=== PATIENT | female | born 1980 | race Caucasian/White ===

== ENCOUNTER → 2017-03-31 | Day surgery (SDC) | payer BC ==
[~2017-03-31] MED LIST: DICY10CA53 PO; DOCU-109 PO; HYDROmorphone 2 MG/ML VIAL IV PRN; IBUP-1027 PO; IBUP-1060 PO; IV RINGERS,LACTATED 1000ML 1,000 ML IV SCH; LIDOCAINE 1% PF 2 ML VIAL. ID PRN; MIDAZOLAM HCL/PF 2 MG/2 ML VIAL. IV PRN; MORPHINE SULFATE 2 MG/ML DISP.SYRIN. IV PRN; ONDANSETRON PF 4 MG/2 ML VIAL. IV PRN; OXYC-323 PO; PROCHLORPERAZINE 10 MG/2 ML VIAL. IV PRN; PROPOFOL 40 ML IV ONE; RANI150T6 PO; TAMS0.4C97 PO; fentaNYL PF VIAL 100 MCG/2 ML VIAL IV PRN
[2017-03-31 10:27] VITALS: BP 104/62
--- NOTE | 2017-03-31 13:12 | CONS ---
DATE OF CONSULTATION: 03/31/2017 REFERRING PHYSICIAN: Jia Kunz MD of [place], [place] HISTORY OF PRESENT ILLNESS: A 36-year-old female whose past medical history is significant for Vidales syndrome, nephrolithiasis, status post hysterectomy as well as anxiety. She was admitted and seen for surveillance colonoscopy. Last exam was a year ago which was unrevealing. Previous upper endoscopy did reveal esophagitis and a papilloma. With the Vidales syndrome, surveillance colonoscopy was recommended on a yearly basis. Her father has had colon cancer with resection in the past year as well. She denies any melena or hematochezia. She denies any change in weight or appetite. No bleeding or additional complaints at this time. PAST MEDICAL HISTORY: Vidales syndrome, nephrolithiasis, anxiety. PAST SURGICAL HISTORY: Status post hysterectomy, tubal ligation and appendectomy. MEDICATIONS: Include Colace, ibuprofen, Percocet and Zantac. SOCIAL HISTORY: She is a former smoker. Social drinker. FAMILY HISTORY: Significant for Vidales syndrome. Also ____ colon cancer with her father and Crohn's disease with her grandmother. REVIEW OF SYSTEMS: Per records. PHYSICAL EXAMINATION: GENERAL: Reveals a well-nourished, well-developed female. VITAL SIGNS: Temperature is 98.1, pulse 80, respirations 20. HEENT: Normocephalic, atraumatic head. Pupils and extraocular movements not tested. Sclerae anicteric. NECK: Supple. LUNGS: Clear. CARDIOVASCULAR: Reveals S1, S2 without S3, S4 or appreciable murmur. ABDOMEN: Reveals a soft abdomen, normoactive bowel sounds ____ appreciable hepatosplenomegaly and multiple surgical incisions. EXTREMITIES: Reveals no cyanosis, clubbing or edema. IMPRESSION: Vidales syndrome. PLAN: Screening colonoscopy is recommended at this time on a yearly basis. Risks and benefits have been discussed with the patient who is willing to proceed at this time. BRIANNE HERNANDEZ MD DR: OPAL/bethany JOB#: [id number] / [id number] ecc JIA KUNZ MD
== END | disposition home or self-care (01) ==
LOC: ENDOS 08:08
PROVIDERS: ATTEND Internal Medicine Gastroenterology
DX: Z12.11 Encounter for screening for malignant neoplasm of colon (principal); K64.0 First degree hemorrhoids; K21.9 Gastro-esophageal reflux disease without esophagitis; F17.200 Nicotine dependence, unspecified, uncomplicated; Z98.51 Tubal ligation status; Z80.0 Family history of malignant neoplasm of digestive organs; Z98.890 Other specified postprocedural states; Z90.710 Acquired absence of both cervix and uterus; Z87.442 Personal history of urinary calculi; Z87.39 Personal history of other diseases of the musculoskeletal system and connective tissue
CPT/HCPCS: 45378; J2704

== ENCOUNTER → 2017-11-27 | Outpatient (CLI) | payer BC | END | disposition home or self-care (01) | LOC: KCIC 11:02 | DX: M25.572 Pain in left ankle and joints of left foot (principal) | CPT/HCPCS: 73610 ==

== ENCOUNTER → 2018-04-06 | Day surgery (SDC) | payer BC ==
[~2018-04-06] MED LIST changes: -HYDROmorphone 2 MG/ML VIAL IV PRN; -MORPHINE SULFATE 2 MG/ML DISP.SYRIN. IV PRN; -ONDANSETRON PF 4 MG/2 ML VIAL. IV PRN; -PROCHLORPERAZINE 10 MG/2 ML VIAL. IV PRN; +RANI150T21 PO; -RANI150T6 PO
[2018-04-06 10:27] VITALS: BP 100/64
--- NOTE | 2018-04-06 23:04 | CONS ---
DATE OF CONSULTATION: 04/06/2018 REASON FOR CONSULTATION: Vidales syndrome and esophagitis. HISTORY OF PRESENT ILLNESS: A 37-year-old female with past medical history significant for Vidales syndrome, nephrolithiasis, status post hysterectomy, tubal ligation, appendectomy is seen for surveillance colonoscopy. Denies any change in bowel habits, diarrhea, constipation. 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 PAST MEDICAL HISTORY: Vidales syndrome, nephrolithiasis, anxiety, status post hysterectomy, tubal ligation and appendectomy. MEDICATIONS: Ibuprofen. FAMILY AND SOCIAL HISTORY: She is a former smoker, social drinker. FAMILY HISTORY: Significant for Vidales syndrome with her father and Crohn's as well as colon cancer. REVIEW OF SYSTEMS: Per records. PHYSICAL EXAMINATION: GENERAL: Reveals a well-nourished, well-developed female. VITAL SIGNS: Temperature is 97.8, pulse 85, respiratory rate is 18. HEENT: Normocephalic and atraumatic head. Pupils and extraocular movements are not tested. Sclerae anicteric. NECK: Supple. LUNGS: Clear. CARDIOVASCULAR: Reveals an S1, S2 without S3, S4 or appreciable murmur. ABDOMEN: Reveals soft abdomen, normoactive bowel sounds without appreciable hepatosplenomegaly. EXTREMITIES: Reveals no cyanosis, clubbing, edema. IMPRESSION: 1. Esophagitis with history of papilloma. EGD with possible biopsy and dilatation was recommended. 2. Vidales syndrome, family history of colon cancer. Surveillance colonoscopy on a yearly basis is recommended. BRIANNE HERNANDEZ MD DR: OPAL/bethany JOB#: [id number] / [id number]
--- NOTE | 2018-04-09 15:07 | PATHOLOGY ---
[facility] Accession Number: [id number] . 01 Material submitted: . DISTAL ESOPHAGEAL BIOPSY R/O BARRETTS . 01 Clinical history: . Hx esophagitis, family HX of Valerie syndrome, colon polyps . 02 Diagnosis: Esophageal biopsies, distal esophagus: - Segments of hyperplastic squamous esophageal mucosa consistent with reflux esophagitis. (JPM:josselin; 04/09/2018) QMS/04/09/2018 . 02 Comment: Sections of the distal esophageal biopsy reveal segments of tangentially oriented, hyperplastic squamous esophageal mucosa. The findings are consistent with reflux esophagitis. There is no evidence of Galvan's change, dysplasia, or malignancy. (JPM:josselin; 04/09/2018) . 02 Electronically signed: . Nitish Srinivasan MD, Pathologist NPI- [id number] . 01 Gross description: . Received in formalin labeled "[place], Peter, distal esophageal BX, rule out Galvan's," are 4 segments of mcintosh soft tissue measuring 1.1 x 0.8 x 0.2 cm in aggregate dimensions and ranging from 0.3 to 0.8 cm in maximum dimension. The specimen is submitted entirely in cassette A1. (TSD; 04/06/2018) TOB/TOB . 02 Pathologist provided ICD-10: K21.0 . 02 CPT . 789897 Specimen Comment: A courtesy copy of this report has been sent to Specimen Comment: [phone], . Specimen Comment: Report sent to / DR HUERTA Specimen Comment: A duplicate report has been generated due to demographic updates. Performed at: [address], [place], [place] [id number] MD Eleazar Acosta MD Phone: [phone] Performed at: 02 [facility] [address] [place], [place] [id number] MD Nitish Srinivasan MD Phone: [phone]
== END | disposition home or self-care (01) ==
LOC: SURG 08:26
PROVIDERS: ATTEND Internal Medicine Gastroenterology
DX: Z12.11 Encounter for screening for malignant neoplasm of colon (principal); K64.0 First degree hemorrhoids; K21.0 Gastro-esophageal reflux disease with esophagitis; Z87.442 Personal history of urinary calculi; F41.9 Anxiety disorder, unspecified; Z90.710 Acquired absence of both cervix and uterus; Z90.49 Acquired absence of other specified parts of digestive tract; Z98.51 Tubal ligation status; Z79.899 Other long term (current) drug therapy; Z72.89 Other problems related to lifestyle; Z87.891 Personal history of nicotine dependence; Z83.79 Family history of other diseases of the digestive system; Z80.0 Family history of malignant neoplasm of digestive organs; Z85.038 Personal history of other malignant neoplasm of large intestine
CPT/HCPCS: 43239; 45378; 88305; J2704

== ENCOUNTER → 2018-07-30 | Outpatient (CLI) | payer BC ==
[2018-04-06 10:27] VITALS: BP 100/64
[~2018-07-30] MED LIST changes: -IV RINGERS,LACTATED 1000ML 1,000 ML IV SCH; -LIDOCAINE 1% PF 2 ML VIAL. ID PRN; -MIDAZOLAM HCL/PF 2 MG/2 ML VIAL. IV PRN; -OXYC-323 PO; +OXYC1TAB15 PO; -PROPOFOL 40 ML IV ONE; -fentaNYL PF VIAL 100 MCG/2 ML VIAL IV PRN
--- NOTE | 2018-07-30 17:05 | KCIC ---
Bilateral digital screening mammograms with 3-D tomosynthesis: Reason for examination: Routine baseline screening. Vidales syndrome. Family history of breast cancer. Bilateral mammograms in CC and oblique projections were obtained with 2-D imaging and 3-D tomosynthesis imaging on a Siemens Inspiration unit and reviewed on the workstation. Interpretation was made with the benefit of CAD. The skin and nipples show no abnormalities. No abnormal axillary lymph nodes are seen. The breast parenchyma shows scattered fatty and fibroglandular density. (Breast density: Category B.) There is a small nodule in the 4:00 C position approximately 9.5 cm from the nipple of the left breast measuring approximately 6 mm in size. Recommend further evaluation with ultrasound. There are no other dominant masses, suspicious calcifications or architectural distortion. Impression: 6 mm nodule in the central 4:00 C position of the left breast 9.5 cm from the nipple. Recommend further evaluation with ultrasound. BI-RADS Category 0: Incomplete. Needs additional imaging evaluation "Our facility is accredited by the [employer] Mammography [employer]." This patient's information has been entered into a reminder system for the patient to be notified with the results of her examination and a target date for the next mammogram. Electronically signed by: Majo Kim MD (07/30/2018 5:00 PM) [facility]
== END | disposition home or self-care (01) ==
LOC: KCIC MAMMO 15:41
PROVIDERS: ATTEND Nurse Practitioner Family
DX: Z12.31 Encounter for screening mammogram for malignant neoplasm of breast (principal)
CPT/HCPCS: 77063; 77067

== ENCOUNTER → 2018-08-02 | Outpatient (CLI) | payer BC ==
[2018-04-06 10:27] VITALS: BP 100/64
--- NOTE | 2018-08-02 08:52 | KCIC ---
Left breast ultrasound: Reason for examination: Nodular density on mammographic screening. Comparison is made to mammographic exam dated 07/30/2018. Ultrasound examination was performed with attention to the area of mammographic concern in the left axilla. In the 3:00 position 10 cm from the nipple and appearing to correspond to the area of mammographic concern, there is a 3.4 mm nodule with vascular flow at the hilum consistent with an intramammary lymph node. There is also an adjacent 2 mm lesion showing some echogenicity centrally consistent with a small lymph node. No other cystic or solid lesions are seen. No abnormal appearing lymph nodes are seen in the axilla. IMPRESSION: Small nodule consistent with an intramammary lymph node at the 3:00 position which appears to correspond with the area of mammographic concern with an adjacent smaller nodule consistent with an additional lymph node. Recommend reevaluation with left breast mammogram and ultrasound in 6 months. BI-RADS Category 3: Probably Benign. "Our facility is accredited by the [employer] Mammography Program." This patient's information has been entered into a reminder system for the patient to be notified with the results of her examination and a target date for the next mammogram. Electronically signed by: Majo Kim MD (08/02/2018 8:49 AM) [facility]
== END | disposition home or self-care (01) ==
LOC: KCIC US 07:58
PROVIDERS: ATTEND Nurse Practitioner Family
DX: N63.21 Unspecified lump in the left breast, upper outer quadrant (principal)
CPT/HCPCS: 76641

== ENCOUNTER 2018-08-09 20:18 | Emergency (ER) | payer BC ==
[~2018-08-09] VITALS: Ht 167.6 cm; Wt 86.2 kg
[~2018-08-09 20:18] MED LIST changes: +RANI-376 PO; -RANI150T21 PO
[2018-08-09 20:34] VITALS: BP 115/58
[2018-08-09] MEDS ORDERED: DIPHTH,PERTUSS(ACELL),TET TOX 0.5 ML DISP.SYRIN. VAX IM ONE (21:15)
[2018-08-09] MEDS ORDERED: NEOMY/BACITR/POLYMYXIN OINT PACKET. TP ONE (21:15)
[2018-08-09] MEDS ORDERED: LIDOCAINE 1% PF 2 ML VIAL. INJ ONE (21:15)
--- NOTE | 2018-08-09 22:14 | PHYS DOC ---
Past Medical History Past Medical History: No Pertinent History, Other Additional Past Medical Histor: BLACK SYNDROME GENE, (MATT CUADRA APRN) Past Surgical History: Appendectomy, Hysterectomy, Other Additional Past Surgical Histo: uterine ablation (MATT CUADRA APRN) Alcohol Use: None Drug Use: None (MATT CUADRA APRN) Adult General Chief Complaint Chief Complaint: LACERATION/AVULSION HPI HPI Patient is a 37 year old female who presents to the emergency department with complaints of a laceration to the fifth digit of her right hand. Patient states she was washing dishes when a glass broken car hand. She is unsure of her last tetanus immunization. She denies any numbness, tingling number decreased range of motion of the affected finger. she denies any pain at this time. (MATT CUADRA APRN) Review of Systems Review of Systems Constitutional: Denies fever or chills [] Musculoskeletal: Denies joint pain [] Integument: Denies rash; See HPI Neurologic: Denies headache, focal weakness or sensory changes [] (MATT CUADRA APRN) Current Medications Current Medications Current Medications Medications (Trade) Dose Ordered Sig/Clari Start Time Stop Time Status Last Admin Dose Admin Diphtheria/ Tetanus/Acell Pertussis (Boostrix) 0.5 ml ONCE ONCE 08/09/18 21:15 08/09/18 21:16 DC 08/09/18 21:17 0.5 ML Lidocaine HCl (Xylocaine-Mpf 1% 2ml Vial) 6 ml 1X ONCE 08/09/18 21:15 08/09/18 21:16 DC 08/09/18 21:13 6 ML Neomycin/ Polymyxin/ Bacitracin (Triple Antibiotic Ointment) 1 pkt 1X ONCE 08/09/18 21:15 08/09/18 21:16 DC 08/09/18 21:14 1 PKT (ZULEIKA MOMIN DO) Allergies Allergies Allergies Coded Allergies Type Severity Reaction Last Updated Verified No Known Drug Allergies 04/06/18 No (ZUELIKA MOMIN DO) Physical Exam Physical Exam Constitutional: Well developed, well nourished, no acute distress, non-toxic appearance. [] HENT: Normocephalic, atraumatic, bilateral external ears normal, nose normal. [] Eyes: PERRLA, no discharge. [] Neck: Normal range of motion, no stridor. [] Cardiovascular:Heart rate regular rhythm Lungs & Thorax: respirations even and unlabored, no retractions, no distress Skin: Warm, dry, no erythema, no rash; 5 cm curved laceration noted the Raymond aspect of the proximal and of the right hand fifth digit, bleeding controlled Extremities: No cyanosis, ROM intact, no edema, Neurologic: Alert and oriented X 3, normal motor function, normal sensory function, no focal deficits noted. [] Psychologic: Affect normal, judgement normal, mood normal. [] (MATT CUADRA APRN) EKG EKG [] (MATT CUADRA APRN) Radiology/Procedures Radiology/Procedures [] (MATT CUADRA APRN) Course & Med Decision Making Course & Med Decision Making Pertinent Labs and Imaging studies reviewed. (See chart for details) [] (MATT CUADRA APRN) Dragon Disclaimer Dragon Disclaimer This electronic medical record was generated, in whole or in part, using a voice recognition dictation system. (MATT CUADRA APRN) Departure Departure Impression: Primary Impression: Laceration of finger of right hand without foreign body without damage to nail Additional Impression: Need for Tdap vaccination Disposition: 01 HOME, SELF-CARE Condition: STABLE Referrals: ALLIE GROSS (PCP) Patient Instructions: Laceration Care, Adult, [id number], VIS, Tetanus, Diphtheria (Td); Tetanus, Diphtheria, Pertussis (Tdap) - CDC Additional Instructions: You may take tylenol or ibuprofen as needed for pain. Leave the Dressing that was placed in the ER in place for the next 24 hours, then change the dressing and apply a thin layer of antibiotic ointment twice daily and as needed. Return to the ER or follow up with her primary care doctor in 10-14 days to have the sutures removed. Sooner if symptoms of infection including redness, warmth, fever, or drainage. Laceration/Wound Repair Laceration/Wound Repair : Wound Location: upper extremity (5th digit of right hand ) Wound's Depth, Shape: superficial Wound Length (cm): 5 Wound Explored: no foreign body removed Irrigated w/ Saline (ccs): 200 Betadine Prep?: No Anesthesia: 1% Lidocaine Volume Anesthetic (ccs): 6 Wound Debrided: minimal Wound Repaired With: sutures Suture Size/Type: 5:0 (ethilon), 4:0 Number of Sutures: 15 Layer Closure?: No Sterile Dressing Applied?: No Splint Applied?: Yes (aluminum finger splint) Sling Applied?: No Progress pt tolerated procedure well, cap refill remains less than 2 seconds after splint applied, unchanged from initial exam (MATT CUADRA APRN) Attending Signature Attending Signature I have reviewed the PA/FISH WORM GROWER's note and plan of care. I was available for consultation as needed during the patient's visit in the emergency department. I agree with the clinical impression, plan, and disposition. (ZULEIKA MOMIN DO) Problem Qualifiers Primary Impression: Laceration of finger of right hand without foreign body without damage to nail Encounter type: initial encounter Finger: little finger Qualified Codes: S61.216A - Laceration without foreign body of right little finger without damage to nail, initial encounter MATT CUADRA APRN Aug 09, 2018 22:14 ZULEIKA MOMIN DO November 04, 2018 05:26
== END 2018-08-09 22:26 | disposition home or self-care (01) ==
LOC: ER 20:18
DX: S61.216A Laceration without foreign body of right little finger without damage to nail, initial encounter (principal); Z90.710 Acquired absence of both cervix and uterus; Z90.89 Acquired absence of other organs
CPT/HCPCS: 12002; 90471; 90715; 99283

== ENCOUNTER → 2019-01-31 | Outpatient (CLI) | payer BC ==
--- NOTE | 2019-01-31 13:53 | KCIC ---
Left breast diagnostic digital mammograms with 3-D tomosynthesis: Reason for examination: Follow-up nodule. Comparison is made to previous study dated 07/30/2018. Left breast mammograms in CC and oblique projections were obtained with 2-D imaging and 3-D tomosynthesis imaging on a Siemens Inspiration unit and reviewed on the workstation. Interpretation was made with the benefit of CAD. The skin and nipple show no abnormalities. No abnormal axillary lymph nodes are seen. The breast parenchyma shows scattered fatty and fibroglandular density. (Breast density: Category B.) There continues to be some nodularity at the 10:00 C position which probably represents an intramammary lymph node. There are no new dominant masses, suspicious calcifications or architectural distortion. Impression: Nodular density probably represents an intramammary lymph node at the 3:00 C position of the left breast. Ultrasound to follow. BI-RADS Category 0: Incomplete. Needs additional imaging evaluation. Left breast ultrasound: Comparison is made to previous study dated 08/02/2018. Ultrasound examination was performed in the area of mammographic concern and at the axilla. At the 3:00 position 10 cm from the nipple, there continued be 2 small hypoechoic lesions measuring 2.4 and 3.2 mm in greatest dimensions respectively. There has been minimal change in the appearances. No other cystic or solid nodules are seen. No abnormal appearing lymph nodes are seen in the right left axilla. Impression: Continued presence of small nodules consistent with intramammary lymph nodes with no significant interval change. No other cystic or solid lesions are seen. Recommend continued 6 month follow-up ultrasound at the time of bilateral mammograms. BI-RADS Category 3: Probably Benign. "Our facility is accredited by the [employer] Mammography [employer]." This patient's information has been entered into a reminder system for the patient to be notified with the results of her examination and a target date for the next mammogram. Electronically signed by: Majo Kim MD (01/31/2019 1:50 PM) [facility]
== END | disposition home or self-care (01) ==
LOC: KCIC MAMMO 07:49
PROVIDERS: ATTEND Nurse Practitioner Family
DX: N64.89 Other specified disorders of breast (principal)
CPT/HCPCS: 76641; 77065; G0279; 77061

== ENCOUNTER 2019-03-07 18:19 | Emergency (ER) | payer BC ==
[~2019-03-07] VITALS: Ht 170.2 cm; Wt 88.9 kg
[2019-03-07] MEDS ORDERED: KETOROLAC 15 MG/ML VIAL. IV ONE (21:00)
[2019-03-07] MEDS ORDERED: IV NORMAL SALINE 1000ML BAG 1,000 ML IV ONE (21:00)
[2019-03-07] MEDS ORDERED: FAMOTIDINE 20 MG/2 ML VIAL IVP ONE (21:00)
[2019-03-07] MEDS ORDERED: ONDANSETRON PF 4 MG/2 ML VIAL. IV ONE (21:00)
[2019-03-07 21:39] VITALS: BP 129/77
--- NOTE | 2019-03-07 21:49 | RAD ---
Examination: ABDOMEN LTD History: Right upper quadrant pain Comparison/Correlation: 03/01/2016 CT abdomen and pelvis with contrast Findings: Limited right upper quadrant ultrasound exam was performed. Hepatic echotexture is normal. Portal venous flow is normal. Gallbladder is incompletely distended. The patient reportedly was not sufficiently nothing by mouth for this exam. No biliary dilatation. Common bile duct measures up to 0.3 cm diameter. Proximal pancreas is normal. Distal pancreas is obscured by bowel gas. Right kidney measures 12.2 cm x 6.5 cm x 5.3 cm. Slight fullness of the right renal pelvis is noted. Mild distention of proximal contiguous right ureter. No right upper quadrant ascites. Impression: Mild right hydronephrosis similar upon correlation with 03/01/2016 CT exam. No nephrolithiasis based on ultrasound exam. No cholelithiasis but evaluation may be limited as the gallbladder is not fully distended on this exam. Electronically signed by: Prince Hernadez MD (03/07/2019 9:46 PM) [facility]
[2019-03-07 22:02] LABS: BASO % 1 % (0-3); EOS # 0.2 x10^3/uL (0.0-0.7); EOS % 2 % (0-3); HEMATOCRIT 40.9 % (36.0-47.0); HEMOGLOBIN 13.7 g/dL (12.0-15.5); LYMPH # 2.7 x10^3/uL (1.0-4.8); LYMPH % 36 % (24-48); MEAN CORPUSCULAR HEMOGLOBIN 28 pg (25-35); MEAN CORPUSCULAR HGB CONC 33 g/dL (31-37); MEAN CORPUSCULAR VOLUME 84 fL (79-100); MONO # 0.6 x10^3/uL (0.0-1.1); MONO % 8 % (0-9); NEUT # 4.2 x10^3/uL (1.8-7.7); NEUT % 54 % (31-73); PLATELET COUNT 266 x10^3/uL (140-400); RED BLOOD COUNT 4.85 x10^6/uL (3.50-5.40); RED CELL DISTRIBUTION WIDTH 13.1 % (11.5-14.5); WHITE BLOOD COUNT 7.7 x10^3/uL (4.0-11.0)
[2019-03-07 22:04] LABS: BILIRUBIN,URINE NEGATIVE (NEG); CLARITY,URINE CLOUDY; COLOR,URINE YELLOW; NITRITE,URINE NEGATIVE (NEG); PROTEIN,URINE NEGATIVE (NEG-TRACE)
[2019-03-07 22:08] LABS: BACTERIA,URINE MANY /HPF (0-FEW); RBC,URINE OCC /HPF (0-2); SQUAMOUS EPITHELIAL CELL,UR OCC /LPF
[2019-03-07 22:11] LABS: PROTHROMBIN TIME PATIENT 13.2 SEC (11.7-14.0)
[2019-03-07 22:12] LABS: CREATININE 0.9 mg/dL (0.6-1.0); GFR 69.3; POTASSIUM 3.9 mmol/L (3.5-5.1)
[2019-03-07 22:18] LABS: ALBUMIN 3.8 g/dL (3.4-5.0); TOTAL BILIRUBIN 0.5 mg/dL (0.2-1.0); TOTAL PROTEIN 7.7 g/dL (6.4-8.2)
--- NOTE | 2019-03-07 23:25 | PHYS DOC ---
Past Medical History Past Medical History: GERD, Other Additional Past Medical Histor: BLACK SYNDROME GENE, Past Surgical History: Appendectomy, Hysterectomy, Other Additional Past Surgical Histo: uterine ablation Smoking: Cigarettes Alcohol Use: None Drug Use: None Adult General Chief Complaint Chief Complaint: GI PROBLEM HPI HPI 38 y/o female presents with history of RUQ/epigastric abdominal pain x 9 days. Reports worse after eating or drinking. Denies known sick contacts. Denies fever/chills. Denies trauma. Denies family history of gallbladder disease. Seen by PCP recently for same and had labs drawn. Reports doesn't have results yet. Review of Systems Review of Systems Constitutional: Denies fever or chills; reports malaise Eyes: Denies redness or eye pain HENT: Denies nasal congestion or sore throat Respiratory: Denies cough or shortness of breath Cardiovascular: Denies chest pain or palpitations GI: Reports upper abdominal pain and nausea; denies vomiting : Denies dysuria or hematuria Musculoskeletal: Denies back pain or joint pain Integument: Denies rash or skin lesions Neurologic: Denies headache, focal weakness or sensory changes Complete systems were reviewed and found to be within normal limits, except as documented in this note. Current Medications Current Medications Current Medications Medications (Trade) Dose Ordered Sig/Clari Start Time Stop Time Status Last Admin Dose Admin Famotidine (Pepcid Vial) 20 mg 1X ONCE 03/07/19 21:00 03/07/19 21:01 DC 03/07/19 21:59 20 MG Ketorolac Tromethamine (Toradol 15mg Vial) 15 mg 1X ONCE 03/07/19 21:00 03/07/19 21:01 DC 03/07/19 21:59 15 MG Multi-Ingredient Mouthwash/Gargle (Gi Cocktail) 20 ml 1X ONCE 03/07/19 23:45 03/07/19 23:46 DC 03/08/19 00:34 20 ML Ondansetron HCl (Zofran) 4 mg 1X ONCE 03/07/19 21:00 03/07/19 21:01 DC 03/07/19 21:59 4 MG Sodium Chloride 1,000 ml @ 1,000 mls/hr 1X ONCE 03/07/19 21:00 03/07/19 21:59 DC 03/07/19 21:59 1,000 MLS/HR Tramadol HCl (Ultram) 50 mg 1X ONCE 03/07/19 23:45 03/07/19 23:46 DC 03/08/19 00:34 50 MG Allergies Allergies Allergies Coded Allergies Type Severity Reaction Last Updated Verified No Known Drug Allergies 04/06/18 No Physical Exam Physical Exam Constitutional: Well developed, well nourished, no acute distress, non-toxic appearance HENT: Normocephalic, atraumatic, oropharynx moist Eyes: PERRL, EOMI, conjunctiva normal, no discharge Neck: Normal range of motion, no tenderness, supple Cardiovascular: Heart rate normal, regular rhythm Lungs & Thorax: Bilateral breath sounds clear to auscultation, no wheezing Abdomen: Soft, RUQ and epigastric tenderness Skin: Warm, dry, no erythema, no rash Back: No tenderness, no CVA tenderness Extremities: No tenderness, ROM intact, no edema Neurologic: Alert and oriented X 3, normal motor function, normal sensory function, no focal deficits noted Psychologic: Affect normal, judgement normal Current Patient Data Vital Signs Vital Signs Date Time Temp Pulse Resp B/P (MAP) Pulse Ox O2 Delivery O2 Flow Rate FiO2 03/08/19 00:34 Room Air 03/07/19 21:39 72 14 129/77 (94) 100 03/07/19 19:55 97.7 97.7 Lab Values Laboratory Tests Test 03/07/19 20:20 03/07/19 21:20 Urine Collection Type Unknown Urine Color Yellow Urine Clarity Cloudy Urine pH 7.0 Urine Specific [place] 1.015 Urine Protein Negative mg/dL (NEG-TRACE) Urine Glucose (UA) Negative mg/dL (NEG) Urine Ketones (Stick) Negative mg/dL (NEG) Urine Blood Negative (NEG) Urine Nitrite Negative (NEG) Urine Bilirubin Negative (NEG) Urine Urobilinogen Dipstick 1.0 mg/dL (0.2 mg/dL) Urine Leukocyte Esterase Small (NEG) Urine RBC Occ /HPF (0-2) Urine WBC 5-10 /HPF (0-4) Urine Squamous Epithelial Cells Occ /LPF Urine Bacteria Many /HPF (0-FEW) Urine Mucus Slight /LPF White Blood Count 7.7 x10^3/uL (4.0-11.0) Red Blood Count 4.85 x10^6/uL (3.50-5.40) Hemoglobin 13.7 g/dL (12.0-15.5) Hematocrit 40.9 % (36.0-47.0) Mean Corpuscular Volume 84 fL (79-100) Mean Corpuscular Hemoglobin 28 pg (25-35) Mean Corpuscular Hemoglobin Concent 33 g/dL (31-37) Red Cell Distribution Width 13.1 % (11.5-14.5) Platelet Count 266 x10^3/uL (140-400) Neutrophils (%) (Auto) 54 % (31-73) Lymphocytes (%) (Auto) 36 % (24-48) Monocytes (%) (Auto) 8 % (0-9) Eosinophils (%) (Auto) 2 % (0-3) Basophils (%) (Auto) 1 % (0-3) Neutrophils # (Auto) 4.2 x10^3/uL (1.8-7.7) Lymphocytes # (Auto) 2.7 x10^3/uL (1.0-4.8) Monocytes # (Auto) 0.6 x10^3/uL (0.0-1.1) Eosinophils # (Auto) 0.2 x10^3/uL (0.0-0.7) Basophils # (Auto) 0.0 x10^3/uL (0.0-0.2) Prothrombin Time 13.2 SEC (11.7-14.0) Prothrombin Time INR 1.0 (0.8-1.1) Activated Partial Thromboplast Time 33 SEC (24-38) Sodium Level 142 mmol/L (136-145) Potassium Level 3.9 mmol/L (3.5-5.1) Chloride Level 106 mmol/L (98-107) Carbon Dioxide Level 29 mmol/L (21-32) Anion Gap 7 (6-14) Blood Urea Nitrogen 14 mg/dL (7-20) Creatinine 0.9 mg/dL (0.6-1.0) Estimated GFR (Cockcroft-Gault) 69.3 BUN/Creatinine Ratio 16 (6-20) Glucose Level 93 mg/dL (70-99) Calcium Level 10.0 mg/dL (8.5-10.1) Total Bilirubin 0.5 mg/dL (0.2-1.0) Aspartate Amino Transferase (AST) 15 U/L (15-37) Alanine Aminotransferase (ALT) 17 U/L (14-59) Alkaline Phosphatase 111 U/L (46-116) Creatine Kinase 119 U/L (26-192) Creatine Kinase MB (Mass) 0.5 ng/mL (0.0-3.6) Creatine Kinase MB Relative Index 0.4 % (0-4) Troponin I Quantitative < 0.017 ng/mL (0.000-0.055) Total Protein 7.7 g/dL (6.4-8.2) Albumin 3.8 g/dL (3.4-5.0) Albumin/Globulin Ratio 1.0 (1.0-1.7) Lipase 155 U/L (73-393) Laboratory Tests 03/07/19 21:20 Laboratory Tests 03/07/19 21:20 EKG EKG @2123 NSR at 76bpm, NO ST elevation, RBBB, t wave inversion V1-V2 Radiology/Procedures Radiology/Procedures PROCEDURE: ABDOMEN LTD Examination: ABDOMEN LTD History: Right upper quadrant pain Comparison/Correlation: 03/01/2016 CT abdomen and pelvis with contrast Findings: Limited right upper quadrant ultrasound exam was performed. Hepatic echotexture is normal. Portal venous flow is normal. Gallbladder is incompletely distended. The patient reportedly was not sufficiently nothing by mouth for this exam. No biliary dilatation. Common bile duct measures up to 0.3 cm diameter. Proximal pancreas is normal. Distal pancreas is obscured by bowel gas. Right kidney measures 12.2 cm x 6.5 cm x 5.3 cm. Slight fullness of the right renal pelvis is noted. Mild distention of proximal contiguous right ureter. No right upper quadrant ascites. Impression: Mild right hydronephrosis similar upon correlation with 03/01/2016 CT exam. No nephrolithiasis based on ultrasound exam. No cholelithiasis but evaluation may be limited as the gallbladder is not fully distended on this exam. Electronically signed by: Prince Hernadez MD (03/07/2019 9:46 PM) [facility] Course & Med Decision Making Course & Med Decision Making Pertinent Labs and Imaging studies reviewed. (See chart for details) Patient presents with RU/epigastric pain with associated nausea. Concern for possible gastritis vs cholelithiasis. Labs obtained and posted to chart. US without signs of acute cholecystitis. Patient stable for discharge with outpatient follow-up with PCP/GI. Discussed findings and plan with patient and family, who acknowledge understanding and agreement. Dragon Disclaimer Dragon Disclaimer This electronic medical record was generated, in whole or in part, using a voice recognition dictation system. Departure Departure Impression: Primary Impression: Abdominal pain Disposition: 01 HOME, SELF-CARE Condition: STABLE Referrals: ALLIE GROSS (PCP) BRIANNE HERNANDEZ MD Patient Instructions: Abdominal Pain (Nonspecific) Scripts Sucralfate (CARAFATE) 1 Gm/10 Ml Oral.susp 10 ML PO QID, #1200 ML Prov: ZULEIKA MOMIN DO 03/07/19 Tramadol Hcl (TRAMADOL HCL) 50 Mg Tablet 50 MG PO Q6HRS PRN for PAIN, #14 TAB Prov: ZULEIKA MOMIN DO 03/07/19 Problem Qualifiers Primary Impression: Abdominal pain Abdominal location: epigastric Qualified Codes: R10.13 - Epigastric pain ZULEIKA MOMIN DO Mar 07, 2019 23:25
[2019-03-07] MEDS ORDERED: TRAM50TA PO (23:40)
[2019-03-07] MEDS ORDERED: SUCR1ORA5 PO (23:40)
[2019-03-07] MEDS ORDERED: LIDO:MAALOX 1:1 20 ML SINGLE DOSE. PO ONE (23:45)
[2019-03-07] MEDS ORDERED: traMADol 50 MG TABLET PO ONE (23:45)
--- NOTE | 2019-03-08 06:18 | EKG ---
[facility] [address] [place] [id number] Test Date: 2019-03-07 Test Time: 21:23:29 Pat Name: MATTHEW LOAIZA Department: Room: Gender: F It Trainee: : 1980 Requested By: ZULEIKA MOMIN Order Number: [id number] Reading MD: Measurements Intervals [place] Rate: 76 P: 27 NC: 126 QRS: 28 QRSD: 76 T: 28 QT: 362 QTc: 411 Interpretive Statements SINUS RHYTHM NORMAL ECG RI6.01 No previous ECG available for comparison
== END 2019-03-08 00:01 | disposition home or self-care (01) ==
LOC: ER 18:19
DX: R10.13 Epigastric pain (principal); R10.11 Right upper quadrant pain; K21.9 Gastro-esophageal reflux disease without esophagitis; F17.210 Nicotine dependence, cigarettes, uncomplicated; Z90.89 Acquired absence of other organs; Z90.710 Acquired absence of both cervix and uterus
CPT/HCPCS: 36415; 76705; 80053; 81001; 82553; 83690; 84484; 85025; 85610; 85730; 87086; 93005; 96374; 96375; 99285; J1885; J2405; J3490; J7030

== ENCOUNTER → 2019-03-29 | Day surgery (SDC) | payer BC ==
[~2019-03-29] MED LIST changes: +IV RINGERS,LACTATED 1000ML 1,000 ML IV SCH; +LIDOCAINE 2% PF 5 ML VIAL. ONE; +PROPOFOL 40 ML IV ONE; +SUCR1ORA5 PO; +TRAM50TA PO
[2019-03-29 08:55] VITALS: BP 99/71
== END ==
LOC: ENDOS 06:19 → EDSTATUS 07:30
PROVIDERS: ATTEND Internal Medicine Gastroenterology
DX: R10.11 Right upper quadrant pain (principal); K29.50 Unspecified chronic gastritis without bleeding; K64.0 First degree hemorrhoids; K63.89 Other specified diseases of intestine; K52.9 Noninfective gastroenteritis and colitis, unspecified; K21.0 Gastro-esophageal reflux disease with esophagitis; F41.9 Anxiety disorder, unspecified; F15.90 Other stimulant use, unspecified, uncomplicated; Z80.0 Family history of malignant neoplasm of digestive organs; Z72.89 Other problems related to lifestyle; Z87.891 Personal history of nicotine dependence; Z98.890 Other specified postprocedural states; Z98.51 Tubal ligation status; Z90.710 Acquired absence of both cervix and uterus
CPT/HCPCS: 43235; 45378; J2001; J2704

== ENCOUNTER → 2020-04-17 | Outpatient (CLI) | payer BC ==
[2019-03-29 08:55] VITALS: BP 99/71
[~2020-04-17] MED LIST changes: +ESOM40CA PO; -IV RINGERS,LACTATED 1000ML 1,000 ML IV SCH; -LIDOCAINE 2% PF 5 ML VIAL. ONE; -PROPOFOL 40 ML IV ONE
== END ==
LOC: LAB 12:41
PROVIDERS: ATTEND Internal Medicine Gastroenterology
DX: Z01.812 Encounter for preprocedural laboratory examination (principal); Z20.828 Contact with and (suspected) exposure to other viral communicable diseases
CPT/HCPCS: U0003

== ENCOUNTER → 2020-04-22 | Day surgery (SDC) | payer BC ==
[~2020-04-22] MED LIST changes: +IV RINGERS,LACTATED 1000ML 1,000 ML IV SCH; +LIDOCAINE 2% PF 5 ML VIAL. ONE; +PROPOFOL 10 MG/ML (20ML) VIAL. IV ONE
[2020-04-22 08:27] VITALS: BP 108/61
--- NOTE | 2020-04-22 10:01 | HP ---
ADMIT DATE: 04/22/2020 UPDATED HISTORY AND PHYSICAL REASON: Vidales syndrome. HISTORY OF PRESENT ILLNESS: A 39-year-old female with past medical history significant for gastroesophageal reflux disease as well as Vidales syndrome, nephrolithiasis, reflux, is seen for interval EGD and colonoscopy which she has on a yearly basis to assess for polyposis and ampullary involvement. Weight and appetite are stable. There has been no bleeding. She has no additional complaints presently. PAST MEDICAL HISTORY: Vidales syndrome, nephrolithiasis, GERD. ALLERGIES: None. MEDICATIONS: Include Nexium, Carafate, and tramadol. SOCIAL HISTORY: She is a former smoker, social drinker. PAST SURGICAL HISTORY: Tubal ligation and appendectomy. FAMILY HISTORY: Significant for Vidales syndrome, multiple cancers. REVIEW OF SYSTEMS: Per records. PHYSICAL EXAMINATION: GENERAL: Reveals a well-nourished, well-developed female who is alert, cooperative, in no acute distress. VITAL SIGNS: Temperature 97.4, pulse 84, respiratory rate 18. LUNGS: Clear. CARDIOVASCULAR: Reveals an S1, S2 without S3, S4 or appreciable murmur. ABDOMEN: With a soft abdomen, normal bowel sounds, without appreciable hepatosplenomegaly. EXTREMITIES: Reveals no cyanosis, clubbing or edema. IMPRESSION AND PLAN: Vidales syndrome. We will recommend an upper scope and colonoscopy to assess for polyposis, particularly of the ampulla and the upper tract. Risks and benefits have been previously discussed. The patient is willing to proceed. BRIANNE HERNANDEZ MD DR: OPAL/bethany JOB#: [id number] / [id number] IVÁN Verdugo MD
== END | disposition home or self-care (01) ==
LOC: ENDOS 06:07
PROVIDERS: ATTEND Internal Medicine Gastroenterology
DX: R10.9 Unspecified abdominal pain (principal); K29.50 Unspecified chronic gastritis without bleeding; K64.0 First degree hemorrhoids; K21.9 Gastro-esophageal reflux disease without esophagitis; Z87.891 Personal history of nicotine dependence; Z98.51 Tubal ligation status; Z98.890 Other specified postprocedural states; Z90.710 Acquired absence of both cervix and uterus; Z79.899 Other long term (current) drug therapy; Z85.00 Personal history of malignant neoplasm of unspecified digestive organ; Z80.0 Family history of malignant neoplasm of digestive organs
CPT/HCPCS: 43235; 45378; J2704

== ENCOUNTER → 2021-02-02 | Outpatient (CLI) | payer BC ==
[2020-04-22 08:27] VITALS: BP 108/61
[~2021-02-02] VITALS: Ht 167.6 cm; Wt 91.6 kg
[~2021-02-02] MED LIST changes: -IV RINGERS,LACTATED 1000ML 1,000 ML IV SCH; -LIDOCAINE 2% PF 5 ML VIAL. ONE; -PROPOFOL 10 MG/ML (20ML) VIAL. IV ONE; +SINCALIDE 1.8 MCG in IV NORMAL SALINE 50ML 30 ML IV ONE
--- NOTE | 2021-02-02 10:41 | RAD ---
EXAM: ULTRASOUND ABDOMEN LIMITED CLINICAL HISTORY: EPIGASTRIC PAIN COMPARISON: None available. TECHNIQUE: Limited ultrasound examination of the right upper quadrant of the abdomen was performed. FINDINGS: The head and body of the pancreas are unremarkable. The tail is obscured by intestinal gas.. Liver: 19.1 cm in length. Increased hepatic echogenicity relative to the right kidney consistent wi th hepatic steatosis.. There are no focal liver lesions. Flow seen within the portal veins. Biliary: No cholelithiasis. No wall thickening or pericholecystic fluid. There is no pain with dire ct transducer pressure over the gallbladder. Common bile duct measures 0.5 cm. Right Kidney: 11.4 cm in bipolar length. Normal renal cortical echotexture and thickness. No focal re nal lesion, shadowing renal calculus or hydronephrosis. Visualized portions of the abdominal aorta and inferior vena cava are unremarkable. There is no free fluid in the subhepatic space. IMPRESSION: Hepatomegaly and fatty liver. Otherwise normal sonographic survey of the upper abdomen. Electronically signed by: Ferny Neves MD (02/02/2021 10:38 AM) [facility]
--- NOTE | 2021-02-02 12:23 | RAD ---
Examination: Hepatobiliary Scan: History: Epigastric pain. Technique: 5 mCi technetium 99m Choletec was administered intravenously and spot views were obtained on the gamma camera for a Nuclear Medicine hepatobiliary scan. 1.8 mcg of CCK drip was administered over 30 minutes and the region of interest was drawn around the gallbladder and gallbladder ejection fraction was calculated. Findings: There is rapid uptake of activity from the blood pool and concentration in the liver. Activity seen i n the gallbladder and small bowel. There is a rapid response of the gallbladder to CCK and the gallbladder ejection fraction is 75 % whi ch is normal. Impression: Normal hepatobiliary scan. Normal gallbladder function. Electronically signed by: Pierre Arndt MD (02/02/2021 12:20 PM) [id number]
== END ==
LOC: US 06:38
PROVIDERS: ATTEND Internal Medicine Gastroenterology
DX: K76.0 Fatty (change of) liver, not elsewhere classified (principal); R16.0 Hepatomegaly, not elsewhere classified
CPT/HCPCS: 76705; 78227; A9537; J2805

== ENCOUNTER → 2021-06-09 | Day surgery (SDC) | payer BC ==
[~2021-06-09] VITALS: Ht 170.2 cm; Wt 99.0 kg
[~2021-06-09] MED LIST changes: +IV RINGERS,LACTATED 1000ML 1,000 ML IV SCH; +PROPOFOL 10 MG/ML (20ML) VIAL. IV ONE; -SINCALIDE 1.8 MCG in IV NORMAL SALINE 50ML 30 ML IV ONE
[2021-06-09 07:12] VITALS: BP 106/54
--- NOTE | 2021-06-09 08:34 | CONS ---
DATE OF CONSULTATION: 06/09/2021 REASON FOR CONSULTATION: Vidales syndrome, family history of colon cancer. HISTORY OF PRESENT ILLNESS: A 40-year-old female with past medical history significant for Vidales syndrome with father had colon cancer, seen for interval colonoscopy. Bowel habits are regular without diarrhea or constipation. There has been no melena or hematochezia. Weight and appetite are stable. She is otherwise without additional complaints. PAST MEDICAL HISTORY: Significant for GERD, history of renal colic, nephrolithiasis. ALLERGIES: None. MEDICATIONS: Include Nexium, ranitidine, Carafate, and tramadol. FAMILY HISTORY: Significant for ovarian cancer, hypertension, ulcerative colitis, colon cancer, breast cancer, and diabetes. SOCIAL HISTORY: Former smoker, social drinker. PAST SURGICAL HISTORY: Tubal ligation, appendectomy. REVIEW OF SYSTEMS: Per records. PHYSICAL EXAMINATION: GENERAL: Reveals a well-nourished, well-developed female who is alert, cooperative, in no acute distress. VITAL SIGNS: Temperature 97.4, pulse 95, respiratory rate 20. LUNGS: Clear. CARDIOVASCULAR: Reveals an S1, S2, without S3, S4 or appreciable murmur. ABDOMEN: Reveals a soft abdomen, normal bowel sounds, without appreciable hepatosplenomegaly. EXTREMITIES: No cyanosis, clubbing or edema. IMPRESSION: Vidales syndrome, family history of colon cancer. Surveillance exam is recommended at this time. Risks, benefits have been previously discussed. The patient is willing to proceed. PARMJIT CORTEZ: Nanci TID: [id number]
[2021-06-09 08:53] VITALS: BP 106/58
== END | disposition home or self-care (01) ==
LOC: ENDOS 06:47
PROVIDERS: ATTEND Internal Medicine Gastroenterology
DX: Z12.11 Encounter for screening for malignant neoplasm of colon (principal); K64.0 First degree hemorrhoids; K63.89 Other specified diseases of intestine; K21.9 Gastro-esophageal reflux disease without esophagitis; Z87.891 Personal history of nicotine dependence; Z79.899 Other long term (current) drug therapy; Z98.51 Tubal ligation status; Z90.710 Acquired absence of both cervix and uterus; Z98.890 Other specified postprocedural states; Z82.49 Family history of ischemic heart disease and other diseases of the circulatory system; Z80.0 Family history of malignant neoplasm of digestive organs; Z80.3 Family history of malignant neoplasm of breast; Z83.3 Family history of diabetes mellitus
CPT/HCPCS: 45378; J2704